=== PATIENT | female | born 1980 | race Hispanic/Latino ===

== ENCOUNTER 2017-07-23 19:07 | Emergency (ER) | payer BC ==
[2017-07-24 00:03] LABS: BHCG - Serum Negative (NEGATIVE); Pregs Control Background? CLEAR/WHITE (CLR/WHITE); Pregs Control Bar Appear? YES (CONTROL BAR)
[2017-07-24 00:07] LABS: ALT (SGPT) 10 U/L (8-55); AST (SGOT) 11 U/L (5-34); Albumin 4.3 g/dL (3.5-5.0); Alkaline Phosphatase 89 U/L (40-150); Anion Gap 14 mmol/L (10-20); BUN (Urea Nitrogen) 13 mg/dL (7.0-18.7); Bilirubin, Total 0.6 mg/dL (0.2-1.2); Calc. Creatinine Clearance 0 mL/min (70-130); Calcium 8.8 mg/dL (7.8-10.44); Carbon Dioxide 19 mmol/L (22-29); Chloride 107 mmol/L (98-107); Estimated GFR-MDRD Greater than 90; Globulin 3.3 g/dL (2.4-3.5); Glucose 125 mg/dL (70-105); Potassium 3.5 mmol/L (3.5-5.1); Protein, Total 7.6 g/dL (6.0-8.3); Sodium 136 mmol/L (136-145)
[2017-07-24 00:09] LABS: #Lymphocytes 0.4 thou/uL (1.20-3.40); #Monocytes 0.3 thou/uL (0.11-0.59); #Neutrophils 9.5 thou/uL (1.40-6.50); %Eosinophils 0.3 % (0.0-10.0); %Lymphocytes 3.4 % (21.0-51.0); %Monocytes 2.4 % (0.0-10.0); %Neutrophils 93.9 % (42.0-75.0); Hemoglobin 12.9 g/dL (12.0-16.0); Mean Corpuscular Hemoglobin 28.6 pg (27.0-31.0); Mean Corpuscular Volume 86.7 fl (81.0-99.0); Mean Platelet Volume 7.1 fL (7.4-10.4); Platelet Count 259 thou/uL (130-400); RBC Distribution Width 18.4 % (11.5-14.5); Red Blood Cell (RBC) Count 4.53 mill/uL (4.20-5.40); White Blood Cell (WBC) Count 10.1 thou/uL (4.8-10.8)
[2017-07-24] MEDS ORDERED: Ketorolac Tromethamine 30 MG/ML VIAL ONE (00:16)
== END 2017-07-24 01:01 | disposition home or self-care (01) ==
LOC: ERS 19:07
DX: M79.1 Myalgia (principal); R20.2 Paresthesia of skin; D64.9 Anemia, unspecified
CPT/HCPCS: 36415; 80053; 84443; 84703; 85025; 93005; 96361; 96374; J1885

== ENCOUNTER 2019-02-22 15:20 | Outpatient (CLI) | payer BC | END 2019-02-22 15:21 | disposition home or self-care (01) | LOC: CTENTCT 15:20 | PROVIDERS: ATTEND Otolaryngology Plastic Surgery within the Head & Neck | DX: J32.8 Other chronic sinusitis (principal); B49 Unspecified mycosis | CPT/HCPCS: 70486 ==

== ENCOUNTER 2019-02-24 10:54 | Day surgery (SDC) | payer BC ==
[2019-02-23 13:48] VITALS: BMI 21.7
[~2019-02-24 10:54] MED LIST: Dexamethasone 20 MG/5 ML VIAL ONE; Lidocaine 1% PF 5 ML VIAL ONE; Ondansetron PF 4 MG/2 ML Vial ONE; PHENYLEPHRINE-NS 100 MCG/ML 10 ML SYRINGE ONE; PROPOFOL 200 MG/20 ML VIAL ONE
[2019-02-24] MEDS ORDERED: Lidocaine 1% w/Epinephrine 1:100K 20 ML VIAL ONE (11:42)
[2019-02-24] MEDS ORDERED: Fentanyl 100 MCG/2 ML VIAL ONE ×2 (11:45→13:46)
[2019-02-24] MEDS ORDERED: Oxymetazoline HCl 0.05% ( 15 ML ) ONE (11:46)
[2019-02-24] MEDS ORDERED: Scopolamine 1.5 mg/72 hour Patch ONE (12:01)
[2019-02-24] MEDS ORDERED: Midazolam HCl 2 mg/2 ml Vial ONE (12:01)
[2019-02-24 12:17] LABS: BHCG - Serum Negative (NEGATIVE); Pregs Control Background? CLEAR/WHITE (CLR/WHITE); Pregs Control Bar Appear? YES (CONTROL BAR)
[2019-02-24] MEDS ORDERED: methylPREDNISolone Acetate 40 mg/ml Vial ONE (13:07)
[2019-02-24] MEDS ORDERED: Meperidine HCl/PF 25 MG/ML VIAL ONE (13:35)
[2019-02-24] MEDS ORDERED: Hydrocodone-Acetamin 15 ML UDCUP ONE (15:24)
--- NOTE | 2019-02-25 14:17 | OP ---
DATE OF PROCEDURE: 02/24/2019 PREOPERATIVE DIAGNOSES: 1. Chronic rhinosinusitis. 2. Allergic fungal sinusitis. 3. Nasal polyposis. 4. Nasal obstruction. POSTOPERATIVE DIAGNOSES: 1. Chronic rhinosinusitis. 2. Allergic fungal sinusitis. 3. Nasal polyposis. 4. Nasal obstruction. PROCEDURES PERFORMED: 1. Bilateral endoscopic sinus surgery, total ethmoidectomies with removal of tissue. 2. Bilateral endoscopic sinus surgery, frontal sinusotomy with removal of tissue. 3. Bilateral maxillary antrostomies with removal of tissue. 4. [employer] cranial base image-guided sinus surgery. ESTIMATED BLOOD LOSS: 50 mL. COMPLICATIONS: None. ANESTHESIA: GETA. DESCRIPTION OF PROCEDURE: The patient was taken to operating room and placed supine on the table. General endotracheal anesthesia was obtained by the anesthesia staff. Following this, the [email or web address] image-guided system was set up and calibrated. It was noted to be within 1 mm of accuracy. Following this, the 0-degree endoscope was advanced into the nasal cavity. 1% lidocaine with 1:100,000 epinephrine was injected into the inferior turbinates, the middle turbinates, and lateral nasal wall. The right middle turbinate was extremely atrophic, and there were generalized atrophic changes of the mucosa secondary to chronic Afrin use. The right middle turbinate was very unstable secondary to and as the middle turbinates were medialized, the right middle turbinate was fractured and was removed using the straight Blakesley forceps and a 0-degree microdebrider. Following this, copious amounts of fungal debris throughout the ethmoidal sinuses and right maxillary sinus were encountered and removed using the suction device and curved microdebrider. The maxillary sinus ostia were gently widened as it was completely polypoid disease bilaterally. Following this, the posterior ethmoidal cells were identified using the [employer] system. Working from posterior to anterior of the polypoid tissue, scar band and remnant bone fragments were removed using the microdebrider. Following this, the sphenoid sinus ostia was identified and was gently widened using the microdebrider bilaterally, and nasal polyps and fungal debris were removed from the sphenoid sinuses bilaterally. Following this, the curved microdebrider and a 45-degree endoscope were used to visualize the frontal recess cells and frontal sinus ostia bilaterally. The frontal sinus ostium was widened bilaterally using the microdebrider. Following this, the nasal cavity was irrigated and PROPEL steroid stents were placed within the frontal sinus ostia and within the ethmoidal sinuses and within the maxillary sinus ostia bilaterally. Nasal pore packing was then placed into the nasal cavity. There was bleeding from the posterior attachment of the middle turbinate, which was controlled using the suction Bovie and a Merocel pack was placed in this right side to assist with hemostatic control throughout the night. The patient tolerated the procedure well. Job ID: [id number]
[2019-03-02 10:11] LABS: Fungus Stain Final report (.); Fungus Stain Result 1 Hyphae observed (.)
== END 2019-02-24 15:57 | disposition home or self-care (01) ==
LOC: SDC 10:54
PROVIDERS: ATTEND Otolaryngology Plastic Surgery within the Head & Neck
PROC: 09TU8ZZ Resection of Right Ethmoid Sinus, Via Natural or Artificial Opening Endoscopic (ICD-10-PCS; principal; 2019-02-24)
PROC: 099Q8ZZ Drainage of Right Maxillary Sinus, Via Natural or Artificial Opening Endoscopic (ICD-10-PCS; principal; 2019-02-24)
PROC: 8E09XBZ Computer Assisted Procedure of Head and Neck Region (ICD-10-PCS; principal; 2019-02-24)
PROC: 09TV8ZZ Resection of Left Ethmoid Sinus, Via Natural or Artificial Opening Endoscopic (ICD-10-PCS; principal; 2019-02-24)
PROC: 09QT8ZZ Repair Left Frontal Sinus, Via Natural or Artificial Opening Endoscopic (ICD-10-PCS; principal; 2019-02-24)
PROC: 09QS8ZZ Repair Right Frontal Sinus, Via Natural or Artificial Opening Endoscopic (ICD-10-PCS; principal; 2019-02-24)
PROC: 099R8ZZ Drainage of Left Maxillary Sinus, Via Natural or Artificial Opening Endoscopic (ICD-10-PCS; principal; 2019-02-24)
DX: J32.4 Chronic pansinusitis (principal); J34.3 Hypertrophy of nasal turbinates; J33.9 Nasal polyp, unspecified; J34.89 Other specified disorders of nose and nasal sinuses; Z91.041 Radiographic dye allergy status
CPT/HCPCS: 84703; 85014; 87102; 87206; J1030; J1100; J2001; J2175; J2250; J2405; J2704; J3010

== ENCOUNTER 2019-10-25 18:05 | Emergency (ER) | payer BC, OTHER ==
[2019-10-25 18:51] LABS: #Basophils 0.1 thou/uL (0.0-0.2); #Eosinphils 0.7 thou/uL (0.0-0.7); #Lymphocytes 2.1 thou/uL (1.20-3.40); #Monocytes 0.6 thou/uL (0.11-0.59); #Neutrophils 6.3 thou/uL (1.40-6.50); %Basophils 0.9 % (0.0-1.0); %Eosinophils 7.5 % (0.0-10.0); %Lymphocytes 21.3 % (21.0-51.0); %Monocytes 5.8 % (0.0-10.0); %Neutrophils 64.5 % (42.0-75.0); Hemoglobin 13.9 g/dL (12.0-16.0); Mean Corpuscular HGB CONC 33.3 g/dL (32.0-36.0); Mean Corpuscular Hemoglobin 32.6 pg (27.0-31.0); Mean Corpuscular Volume 97.9 fL (78.0-98.0); Mean Platelet Volume 6.8 fL (7.4-10.4); Platelet Count 319 thou/uL (130-400); RBC Distribution Width 10.9 % (11.5-14.5); Red Blood Cell (RBC) Count 4.26 mill/uL (4.20-5.40); White Blood Cell (WBC) Count 9.8 thou/uL (4.8-10.8)
[2019-10-25 18:57] LABS: BHCG - Serum Negative (NEGATIVE)
[2019-10-25 18:58] LABS: Pregs Control Background? CLEAR/WHITE (CLR/WHITE); Pregs Control Bar Appear? YES (CONTROL BAR)
[2019-10-25 19:13] LABS: ALT (SGPT) 10 U/L (8-55); AST (SGOT) 12 U/L (5-34); Albumin 4.5 g/dL (3.5-5.0); Alkaline Phosphatase 106 U/L (40-110); Anion Gap 13 mmol/L (10-20); BUN (Urea Nitrogen) 8 mg/dL (7.0-18.7); Bilirubin, Total 0.3 mg/dL (0.2-1.2); Calc. Creatinine Clearance 0 mL/min (70-130); Calcium 9.3 mg/dL (7.8-10.44); Carbon Dioxide 22 mmol/L (22-29); Chloride 107 mmol/L (98-107); Estimated GFR-MDRD 82; Globulin 3.4 g/dL (2.4-3.5); Glucose 92 mg/dL (70-105); Potassium 3.6 mmol/L (3.5-5.1); Protein, Total 7.9 g/dL (6.0-8.3); Sodium 138 mmol/L (136-145)
== END 2019-10-25 19:58 | disposition home or self-care (01) ==
LOC: ERS 18:05
DX: N93.9 Abnormal uterine and vaginal bleeding, unspecified (principal); D64.9 Anemia, unspecified; J45.909 Unspecified asthma, uncomplicated; F41.9 Anxiety disorder, unspecified
CPT/HCPCS: 36415; 80053; 84703; 85025; 86850; 86900; 86901; 99284

== ENCOUNTER 2021-12-03 06:46 | Outpatient (CLI) | payer OTHER ==
[2021-12-03 10:59] LABS: BHCG - Serum Negative (NEGATIVE); Pregs Control Background? CLEAR/WHITE (CLR/WHITE); Pregs Control Bar Appear? YES (CONTROL BAR)
== END 2021-12-03 06:47 | disposition home or self-care (01) ==
LOC: LABBT 06:46
PROVIDERS: ATTEND Specialist
DX: Z01.812 Encounter for preprocedural laboratory examination (principal); B49 Unspecified mycosis; J33.9 Nasal polyp, unspecified; J34.2 Deviated nasal septum; J34.3 Hypertrophy of nasal turbinates; J32.0 Chronic maxillary sinusitis; Z20.822 Contact with and (suspected) exposure to COVID-19
CPT/HCPCS: 84703; 85014; 87811

== ENCOUNTER 2021-12-06 11:15 | Day surgery (SDC) | payer OTHER ==
[2021-12-04 10:51] VITALS: BMI 22.2
[2021-12-06] MEDS ORDERED: Oxymetazoline HCl 0.05% (30 ML BOT) ONE ×2 (12:05→12:54)
[2021-12-06] MEDS ORDERED: EPINEPHrine 1 MG/ML AMP ONE (12:54)
[2021-12-06] MEDS ORDERED: Bupivacaine/Epinephrine 0.25% 30 ML VIAL ONE (12:54)
[2021-12-06] MEDS ORDERED: Scopolamine 1.5 mg/72 hour Patch ONE (13:43)
[2021-12-06] MEDS ORDERED: fentaNYL Citrate/PF 100 MCG/2 ML SYRINGE ONE (13:45)
[2021-12-06] MEDS ORDERED: Midazolam HCl 2 mg/2 ml Vial ONE (14:01)
[2021-12-06] MEDS ORDERED: Triamcinolone 40 MG/ML VIAL ONE (14:36)
[2021-12-06] MEDS ORDERED: Fentanyl 100 MCG/2 ML VIAL ONE (15:29)
[2021-12-06] MEDS ORDERED: Acetaminophen 325 MG TAB ONE (16:20)
[2021-12-06] MEDS ORDERED: Hydrocodone-Acetamin 15 ML UDCUP ONE (16:20)
== END 2021-12-06 16:55 | disposition home or self-care (01) ==
LOC: SDC 11:15
PROVIDERS: ATTEND Specialist
PROC: 09SL8ZZ Reposition Nasal Turbinate, Via Natural or Artificial Opening Endoscopic (ICD-10-PCS; principal; 2021-12-06)
PROC: 09BX8ZZ Excision of Left Sphenoid Sinus, Via Natural or Artificial Opening Endoscopic (ICD-10-PCS; principal; 2021-12-06)
PROC: 09BQ8ZZ Excision of Right Maxillary Sinus, Via Natural or Artificial Opening Endoscopic (ICD-10-PCS; principal; 2021-12-06)
PROC: 099S8ZZ Drainage of Right Frontal Sinus, Via Natural or Artificial Opening Endoscopic (ICD-10-PCS; principal; 2021-12-06)
PROC: 09BR8ZZ Excision of Left Maxillary Sinus, Via Natural or Artificial Opening Endoscopic (ICD-10-PCS; principal; 2021-12-06)
PROC: 09TU8ZZ Resection of Right Ethmoid Sinus, Via Natural or Artificial Opening Endoscopic (ICD-10-PCS; principal; 2021-12-06)
PROC: 099T8ZZ Drainage of Left Frontal Sinus, Via Natural or Artificial Opening Endoscopic (ICD-10-PCS; principal; 2021-12-06)
PROC: 09TV8ZZ Resection of Left Ethmoid Sinus, Via Natural or Artificial Opening Endoscopic (ICD-10-PCS; principal; 2021-12-06)
PROC: 09BW8ZZ Excision of Right Sphenoid Sinus, Via Natural or Artificial Opening Endoscopic (ICD-10-PCS; principal; 2021-12-06)
DX: J32.4 Chronic pansinusitis (principal); J30.89 Other allergic rhinitis; B48.8 Other specified mycoses; J33.9 Nasal polyp, unspecified; J34.2 Deviated nasal septum; J34.3 Hypertrophy of nasal turbinates; H90.6 Mixed conductive and sensorineural hearing loss, bilateral; H81.09 Meniere's disease, unspecified ear; Z79.899 Other long term (current) drug therapy; Z91.041 Radiographic dye allergy status
CPT/HCPCS: 87070; 87077; 87102; 87186; 87205; 87206; 88305; J0171; J2250; J3010; J3301

== ENCOUNTER 2025-02-15 15:46 | Outpatient (CLI) | payer BC | END 2025-02-15 15:47 | disposition home or self-care (01) | LOC: BICMAMMO 15:46 | PROVIDERS: ATTEND Registered Nurse | DX: Z13.820 Encounter for screening for osteoporosis (principal); M81.0 Age-related osteoporosis without current pathological fracture; M85.851 Other specified disorders of bone density and structure, right thigh; M85.852 Other specified disorders of bone density and structure, left thigh | CPT/HCPCS: 77080 ==